=== PATIENT | female | born 1980 | race Two or more races ===

== ENCOUNTER 2019-10-16 13:45 | Outpatient (CLI) | payer OTHER ==
[2019-10-16 15:25] VITALS: BP 132/77
--- NOTE | 2019-10-16 23:15 | Consultation ---
DATE OF CONSULTATION: 10/16/2019 CHIEF COMPLAINT: Abdominal pain. HISTORY OF PRESENT ILLNESS: The patient is a 38-year-old female without any significant past medical history complaining of chronic constipation of over 10 years, also complained of left-sided abdominal pain. No nausea. No vomiting. No dysphagia. No odynophagia. No melena. No hematochezia. No weight loss. PAST MEDICAL HISTORY: None. ALLERGIES: None. MEDICATIONS: None. PAST SURGICAL HISTORY: None. FAMILY HISTORY: Noncontributory. REVIEW OF SYSTEMS: A 10-point review of systems was performed, except for abdominal pain and constipation was negative. SOCIAL HISTORY: The patient denies tobacco, alcohol, or drug abuse. PHYSICAL EXAMINATION: VITAL SIGNS: Temperature 97.7, blood pressure 138/77, pulse 74, respirations 20. HEENT: Normocephalic and atraumatic. Sclerae anicteric. NECK: Supple. No evidence of obvious lymphadenopathy. CARDIOVASCULAR: Regular rate and rhythm. Plus S1 and S2. No obvious murmur. LUNGS: Clear to auscultation bilaterally. ABDOMEN: Positive bowel sounds. Soft and nontender. No rebound. No guarding. No peritoneal sign. EXTREMITIES: No cyanosis. No clubbing. No edema. ASSESSMENT AND PLAN: This is a 38-year-old female with nonspecific left lower quadrant abdominal pain and chronic constipation. The patient was given prescription for lactulose start 30 mL b.i.d. to help her to go to the bathroom. She also request for Linzess 145 one tablet p.o. daily. The patient to come back in 3 months for followup. At this time, there is no need for colonoscopy, no alarming sign and symptoms. We will monitor in 3 months and reevaluate at that time. Deondre Cook M.D. DR: Kedar JOB#: [id number] CC:
== END 2019-10-16 15:45 | disposition home or self-care (01) ==
LOC: PAN 13:45
DX: R10.32 Left lower quadrant pain (principal); K59.09 Other constipation